=== PATIENT | male | born 2000 | race Caucasian/White ===

== ENCOUNTER 2024-08-16 08:44 | Emergency (ER) | payer BC, SELFPAY ==
--- NOTE | 2024-08-16 08:52 | ED.URI ---
HPI - URI/Sore Throat General Chief Complaint: Upper Respiratory Infection Stated Complaint: fever/headache/cough Source: patient and RN notes reviewed Mode of arrival: ambulatory Limitations: no limitations History of Present Illness HPI Narrative: 23-year-old male presented for complaint of headache, body aches, sinus pressure/congestion, cough, fever/chills. onset 3 days. Taking DayQuil, NyQuil, and Tylenol. Denies sob, wheezing, n/v/d. MD elicited complaint: cough Related Data Home Medications ?Medication ?Instructions ?Recorded ?Confirmed ?Last Taken ?Type No Home Medications 08/16/24 08/16/24 Unknown History Allergies Allergy/AdvReac Type Severity Reaction Status Date / Time No Known Allergies Allergy Verified 08/16/24 09:04 Review of Systems Review of Systems: CONSTITUTIONAL: Endorses malaise, chills, sweats, fever EYES: Denies visual changes, redness, or discharge ENT: Reports rhinorrhea, congestion, sinus pain, otalgia, sore throat CARDIOVASCULAR: Denies chest pain, palpitations, edema RESPIRATORY: Reports cough, post nasal drainage. Denies dyspnea GASTROINTESTINAL: Denies abdominal pain, nausea, vomiting, diarrhea SKIN: Denies rash or itching MUSCULOSKELETAL: Endorses myalgia NEUROLOGIC: Endorses headache Exam Narrative: GENERAL:mildly ill-appearing, nontoxic no acute distress. HEAD: Normocephalic EYES: PERRLA, conjunctivae clear ENT: Mucous membranes moist. TM pearly shaikh with dull light reflex bilaterally; no tragal tenderness. no drooling, no hoarseness, no trismus, uvula midline. No tripod positioning, muffled voice, soft palate or pharyngeal wall bulging NECK: Supple. No lymphadenopathy CHEST: Clear to auscultation, breath sounds equal. No wheezing, rhonchi, rales, or stridor. No respiratory distress, speaks in full sentences. HEART: Regular rate and rhythm. No murmur heard. SKIN: Warm, dry, no rash. NEURO: Alert and oriented x3. PSYCH: Normal mood and affect Course Course Emergency Course: Patient is aware of diagnosis, understands and agrees to treatment plan. Anticipatory guidance given. Patient agrees to follow-up as directed and is aware of reasons to seek care at the emergency department. Portions of this record may have been created with voice recognition software Level of Care: Express Care Visit Vital Signs Vital signs: Vital Signs Temperature 97.6 F 08/16/24 08:53 Pulse Rate 107 H 08/16/24 08:53 Respiratory Rate 18 08/16/24 08:53 Blood Pressure 139/77 08/16/24 08:53 Pulse Oximetry 99 08/16/24 08:53 Oxygen Delivery Room Air 08/16/24 08:53 Temperature 97.6 F 08/16/24 08:53 Pulse Rate 107 H 08/16/24 08:53 Respiratory Rate 18 08/16/24 08:53 Blood Pressure 139/77 08/16/24 08:53 Pulse Oximetry 99 08/16/24 08:53 Oxygen Delivery Room Air 08/16/24 08:53 reviewed MDM - URI/Sore Throat MDM Narrative Medical decision making narrative: POS flu. Discussed physical exam findings. Advised supportive measures and signs/symptoms to go to the ER. Pt is appropriate for outpt treatment and f/u. Differential Diagnosis Differential diagnosis: Likely upper respiratory infection, sinusitis and viral infection Discharge Plan Discharge Clinical Impression: Influenza Patient Disposition: Home, Self-Care Condition: Stable Instructions: Influenza (ED) Additional Instructions: Influenza positive You should avoid crowds until you are fever free for 24 hours without the use of fever reducing medications, or the symptoms are improved Rest. Drink plenty of fluids. Tylenol 1000mg every 8 hours as needed for pain/fever Recommend Flonase spray and Zyrtec (or Claritin/Minoo) for sinus pressure/congestion over the counter Cough syrup may cause drowsiness; avoid driving or take it at night time. Follow up with your primary care provider as needed Go to the ER for worsening symptoms or concerns Patient Language: Kinyarwanda Prescriptions: No Action No Home Medications Follow-up/Referrals: PHYSICIAN,BESSEM[facility] CONVERTER OPERATOR [Primary Care Provider] - Stand Alone Forms: Work/School Release IP
[2024-08-16 08:53] VITALS: BP 139/77; PULSE 107; RESP 18; TEMP 36.4; O2SAT 99
[2024-08-16 09:15] LABS: EDCOVIDSCREEN Negative (Negative); EDINFLUASCREEN Positive (Negative); EDINFLUBSCREEN Negative (Negative)
== END 2024-08-16 09:28 | disposition home or self-care (01) ==
PROVIDERS: Emergency Provider Nurse Practitioner Family
DX: J10.1 Influenza due to other identified influenza virus with other respiratory manifestations (principal); Z20.822 Contact with and (suspected) exposure to COVID-19
CPT/HCPCS: 87426; 87804; 99213; G0463